=== PATIENT | male | born 1995 | race Caucasian/White ===

== ENCOUNTER 2018-06-10 00:31 | Emergency (ER) | payer BC ==
[~2018-06-10] VITALS: Ht 177.8 cm; Wt 64.0 kg
[2018-06-10 00:42] VITALS: BP 152/96; Ht 177.8 cm; Wt 64.0 kg
== END 2018-06-10 01:22 | disposition home or self-care (01) ==
LOC: ED 00:31
DX: S01.91XA Laceration without foreign body of unspecified part of head, initial encounter (principal); W22.8XXA Striking against or struck by other objects, initial encounter; Y93.89 Activity, other specified; Y92.89 Other specified places as the place of occurrence of the external cause; Y99.8 Other external cause status
CPT/HCPCS: J2001